=== PATIENT | female | born 1995 | race Caucasian/White ===

== ENCOUNTER 2019-01-11 23:17 | Emergency (ER) | payer MEDICAID, OTHER ==
[~2019-01-11] VITALS: Ht 157.5 cm; Wt 59.0 kg
--- NOTE | 2019-01-12 00:27 | NUR ---
Dr. Fuentes at bedside for MSE.
--- NOTE | 2019-01-12 00:55 | NUR ---
Xray at bedside.
--- NOTE | 2019-01-12 01:12 | NUR ---
Patient discharged to home in stable conditon. Written and verbal after care instructions given. Patient verbalizes understanding of instructions. Pt ambulated out of ER with crutches, no falls noted, gait training provided, VSS, no acute signs of distress, all belongings taken.
[2019-01-12 01:14] VITALS: BP 108/80
--- NOTE | 2019-01-12 09:15 | NUR ---
Per ER physician on duty there is a variance in the pt's x-ray from her visit last night. Attempts were made to contact the patient and her next of kin by and myself but there was no answer at the telephone numbers provided ( [phone], ).
== END 2019-01-12 01:16 | disposition home or self-care (01) ==
LOC: ER 23:17
DX: S93.402A Sprain of unspecified ligament of left ankle, initial encounter (principal); W10.9XXA Fall (on) (from) unspecified stairs and steps, initial encounter; Y93.89 Activity, other specified; Y92.89 Other specified places as the place of occurrence of the external cause; Y99.8 Other external cause status
CPT/HCPCS: 73610; A4663